=== PATIENT | female | born 1950 | race Caucasian/White ===

== ENCOUNTER → 2017-09-25 | Outpatient (CLI) | payer OTHER ==
[~2017-09-25] VITALS: Ht 154.9 cm; Wt 58.1 kg
[~2017-09-25] MED LIST: ATIVAN0.5 MG PO; ATROVENT 00.5 MG/2.5 IH; GAS RELIEF125 MG PO; LO-DOSE ASPIRIN81 M1 PO; MEVACOR10 M1 PO; PROAIR HFA8.5 GM IH; SYMBICORT60 INHALA1 IH; VASOTEC10 MG PO
== END | disposition home or self-care (01) ==
LOC: AMB 11:53
PROC: 0DJD8ZZ Inspection of Lower Intestinal Tract, Via Natural or Artificial Opening Endoscopic (ICD-10-PCS; principal; 2017-09-25)
DX: K57.30 Diverticulosis of large intestine without perforation or abscess without bleeding (principal); I10 Essential (primary) hypertension; J44.9 Chronic obstructive pulmonary disease, unspecified; Z79.82 Long term (current) use of aspirin
CPT/HCPCS: 93005; J2250